=== PATIENT | male | born 1960 | race Caucasian/White ===

== ENCOUNTER 2024-06-03 08:08 | Outpatient (OUT) | payer MEDICARE, SELFPAY ==
[2024-06-03] MEDS: FERRIC CARBOXYMALTOSE IV (09:29)
[2024-06-03] MEDS: SODIUM CHLORIDE 0.9% IV (09:29)
[2024-06-09] MEDS: SODIUM CHLORIDE 0.9% IV (12:00)
[2024-06-09] MEDS: FERRIC CARBOXYMALTOSE IV (12:00)
[2024-06-16] MEDS: HUM PROTHROMBIN CPLX(PCC)4FACT 2,000 UNIT in EMPTY BAG 80 ML 324 UNIT IV (09:38)
[2024-06-16] MEDS: HUM PROTHROMBIN CPLX IV (14:36)
[2024-06-16] MEDS: [UNRECOGNIZED DRUG - OTHER] IV (14:36)
[2024-06-16] MEDS: VANCOMYCIN HCL 750 MG in 0.9 % SODIUM CHLORIDE 250 ML 250 MG IV (15:30)
[2024-06-22] MEDS: FERRIC CARBOXYMALTOSE IV ×3 (14:58→16:45)
[2024-06-22] MEDS: SODIUM CHLORIDE 0.9% IV ×3 (14:58→16:45)
== END 2024-06-22 23:55 | disposition home or self-care (01) ==
DX: R10.9 Unspecified abdominal pain (principal)
CPT/HCPCS: J1439; J3370; J7168